=== PATIENT | male | born 1995 | race African-American/Black ===

== ENCOUNTER 2023-09-09 15:20 | Emergency (ER) | payer OTHER ==
[~2023-09-09] VITALS: Ht 170.2 cm; Wt 100.4 kg
[2023-09-09] MEDS ORDERED: ALBU6.7H6 INH (18:28)
[2023-09-09 18:38] VITALS: BP 158/73; TEMP 96.4; O2SAT 98
== END 2023-09-09 18:39 | disposition home or self-care (01) ==
LOC: M ED 15:20
DX: J70.5 Respiratory conditions due to smoke inhalation (principal); X08.8XXA Exposure to other specified smoke, fire and flames, initial encounter; Y92.9 Unspecified place or not applicable; Y93.9 Activity, unspecified; Y99.1 Military activity; Z79.52 Long term (current) use of systemic steroids